=== PATIENT | female | born 1935 | race Caucasian/White ===

== ENCOUNTER 2016-08-22 10:44 | Emergency (ER) | payer MEDICARE, OTHER ==
[~2016-08-22] VITALS: Ht 152.4 cm; Wt 55.0 kg
[~2016-08-22 10:44] MED LIST: ALEN70TA3 PO; AMIT25TA PO; ASPI-496 PO; AUGMENTIN PO; CALC-112 PO; CHLO1CAP PO; CHOL20002 PO; ESOM40CA PO; ESTR0.9T PO; ESTROVAN PO; FAMO-79 PO; FURO-93 PO; GABA300C10 PO; LEVO100T PO; METFORMIN PO; METOPROLOL PO; NITROGLYCERIN PO; NOVOLOG SQ-INSULIN; OMEG1CAP6 PO; POTASSIUM PO; VICODIN PO
[2016-08-22 11:59] VITALS: BP 152/91
[2016-08-22 12:02] LABS: BLOOD UREA NITROGEN 15 mg/dL (7-18)
[2016-08-22 12:11] LABS: IS PT STATUS REG ER OR PRE ER? YES
== END 2016-08-22 12:57 | disposition home or self-care (01) ==
LOC: ED 12:53
DX: J18.0 Bronchopneumonia, unspecified organism (principal); E11.9 Type 2 diabetes mellitus without complications; I50.9 Heart failure, unspecified
CPT/HCPCS: 36415; 71020; 80048; 82040; 83880; 84484; 85025; 93005; 99285

== ENCOUNTER → 2017-09-27 | Outpatient (CLI) | payer MEDICARE, OTHER | END | disposition home or self-care (01) | LOC: RAD 15:25 | PROVIDERS: ATTEND Specialist | DX: M16.12 Unilateral primary osteoarthritis, left hip (principal); W01.0XXA Fall on same level from slipping, tripping and stumbling without subsequent striking against object, initial encounter ==